=== PATIENT | female | born 1995 | race Caucasian/White ===

== ENCOUNTER 2024-09-23 13:00 | Emergency (ER) | payer BC ==
[2024-09-23 13:48] LABS: #Basophils Less than 0.03 10x3/uL (0.0-0.2); %Basophils 0.3 % (0.0-1.0); %Eosinophils 1.6 % (0.0-10.0); %Lymphocytes 30.7 % (21.0-51.0); %Monocytes 8.1 % (0.0-10.0); %Neutrophils 58.9 % (42.0-75.0); Hematocrit 46.1 % (36.0-47.0); Hemoglobin 15.8 g/dL (12.0-16.0); Mean Corpuscular HGB CONC 34.3 g/dL (32.0-36.0); Mean Corpuscular Hemoglobin 29.4 pg (27.0-31.0); Mean Corpuscular Volume 85.7 fL (78.0-98.0); Mean Platelet Volume 10.2 fL (7.4-10.4); Platelet Count 353 10x3/uL (130-400); RBC Distribution Width 12.4 % (11.5-14.5); Red Blood Cell (RBC) Count 5.38 mill/uL (4.20-5.40)
[2024-09-23 14:10] LABS: BHCG - Serum Negative (NEGATIVE); Pregs Control Background? CLEAR/WHITE (CLR/WHITE); Pregs Control Bar Appear? YES (CONTROL BAR)
[2024-09-23 14:12] LABS: ALT (SGPT) 19 U/L (8-55); AST (SGOT) 18 U/L (5-34); Albumin 4.5 g/dL (3.5-5.0); Alkaline Phosphatase 48 U/L (40-110); Anion Gap 15 mmol/L (10-20); BUN (Urea Nitrogen) 9 mg/dL (7.0-18.7); Bilirubin, Total 0.8 mg/dL (0.2-1.2); Calc. Creatinine Clearance 0 mL/min (70-130); Calcium 10.1 mg/dL (7.8-10.44); Carbon Dioxide 19 mmol/L (22-29); Chloride 110 mmol/L (98-107); Estimated GFR 108; Globulin 3.7 g/dL (2.4-3.5); Glucose 91 mg/dL (70-105); Potassium 3.7 mmol/L (3.5-5.1); Protein, Total 8.2 g/dL (6.0-8.3); Sodium 140 mmol/L (136-145)
[2024-09-23 14:16] LABS: Troponin I Less than 0.010 ng/mL (< 0.028)
[2024-09-23 16:42] LABS: Acetaminophen Less than 10 mcg/mL (Less than 10); Alcohol Less than 10.0 mg/dL (Less than 10); Salicylate Less than 8.0 mg/dL (Less than 8.0)
[2024-09-23 16:56] LABS: Amphetamine Detected (NotDetected); Barbiturates Screen Not Detected (NotDetected); Benzodiazepine Screen Not Detected (NotDetected); Cocaine Metabolite Screen Not Detected (NotDetected); Methadone Not Detected (NotDetected); Methamphetamine Not Detected (NotDetected); Opiate Screen Not Detected (NotDetected); Oxycodone Screen Not Detected (NotDetected); Phencyclidine (PCP) Not Detected (NotDetected); THC/Cannabinoid Screen Not Detected (NotDetected); Tricyclic Screen Not Detected (NotDetected)
== END 2024-09-23 18:59 | disposition home or self-care (01) ==
LOC: ERS 13:00
DX: F64.9 Gender identity disorder, unspecified (principal); Z55.6 Problems related to health literacy
CPT/HCPCS: 36415; 70450; 71045; 80053; 80306; 80307; 84443; 84484; 84703; 85025; 93005